=== PATIENT | female | born 1965 | race Caucasian/White ===

== ENCOUNTER → 2018-04-22 | Outpatient (CLI) | payer OTHER ==
[~2018-04-22] MED LIST: CALCIUM + D 5001 TAB PO; CLARITIN10 MG PO; COUMADIN10 M1 PO; COUMADIN5 M2 PO; COUMADIN5 MG PO; LOTREL 5 MG-101 CAP PO; MOTRIN800 MG PO; MULTIVITAMIN FO1 CAP PO; PRILOSEC20 MG PO; PRILOSEC40 MG PO
== END | disposition home or self-care (01) ==
DX: M79.89 Other specified soft tissue disorders (principal)

== ENCOUNTER → 2018-06-18 | Outpatient (CLI) | payer OTHER | END | disposition home or self-care (01) | LOC: LAB 14:18 | PROVIDERS: Urology | DX: Z01.419 Encounter for gynecological examination (general) (routine) without abnormal findings (principal); R14.0 Abdominal distension (gaseous) ==

== ENCOUNTER → 2018-07-01 | Outpatient (CLI) | payer OTHER | END | disposition home or self-care (01) | LOC: MAMMO 01:20 | DX: Z12.31 Encounter for screening mammogram for malignant neoplasm of breast (principal) ==

== ENCOUNTER → 2019-06-16 | Outpatient (CLI) | payer OTHER ==
[~2019-06-16] MED LIST changes: +BRIN10TA PO
== END ==
LOC: LAB 15:01
DX: M19.041 Primary osteoarthritis, right hand (principal)

== ENCOUNTER 2019-07-06 00:15 | Inpatient (IN) | payer OTHER ==
[~2019-07-06] VITALS: Ht 162.6 cm; Wt 73.2 kg
[2019-07-06] VITALS (72 sets, daily range): BP systolic 62–122; BP diastolic 33–85
[~2019-07-06 00:15] MED LIST changes: -BRIN10TA PO
[2019-07-06 01:03] LABS: BASO # 0.1 10*3/uL (0.0-0.1); BASO % 0.7 % (0.0-1.0); EOS # 0.4 10*3/uL (0.0-0.4); EOS % 4.8 % (1.0-4.0); HEMATOCRIT 40.1 % (37.0-47.0); HEMOGLOBIN 13.2 g/dl (12.0-16.0); LYMPH # 2.7 10*3/uL (1.3-4.4); LYMPH % 35.1 % (27.0-41.0); MEAN CELL VOLUME 93.3 fl (81.0-99.0); MEAN CORPUSCULAR HGB 30.7 pg (27.0-31.0); MEAN CORPUSCULAR HGB CONC 32.9 g/dl (33.0-37.0); MEAN PLATELET VOLUME 9.1 fl (9.6-12.3); MONO # 0.7 10*3/uL (0.1-1.0); NEUT # 3.9 10*3/uL (2.3-7.9); NEUT % 50.3 % (47.0-73.0); PLATELET COUNT AUTOMATED 350 10*3/uL (130-400); RED CELL DISTRI WIDTH 14.4 % (0-14.5); WHITE BLOOD COUNT 7.7 10*3/uL (4.8-10.8)
--- NOTE | 2019-07-06 01:15 | NUR ---
FAMILY HERE SITTING WITH PATIENT AT THIS TIME. MONITOR REMAINS SINUS RHYTHM . CASE LOZOYA RN.
[2019-07-06 01:16] LABS: BILIRUBIN NEGATIVE (NEGATIVE); CLARITY CLEAR (CLEAR); COLOR STRAW (YELLOW); GLUCOSE NEGATIVE (NEGATIVE); KETONE NEGATIVE (NEGATIVE)
[2019-07-06 01:17] LABS: BLOOD TRACE-INTACT (NEGATIVE); NITRITE NEGATIVE (NEGATIVE); PH 6.5 (5.0-9.0); UROBILINOGEN 0.2 E.U./dl (0.2-1.0)
[2019-07-06 01:19] LABS: LEUKO ESTERASE NEGATIVE (NEGATIVE)
[2019-07-06 01:19] LABS: ALBUMIN 3.6 gm/dl (3.1-4.5); ALKALINE PHOSPHATASE 57 U/L (45-117); BUN 9 mg/dl (7-24); CHLORIDE 110 mmol/L (98-107); CREATININE 0.77 mg/dL (0.55-1.02); POTASSIUM 3.6 mmol/L (3.5-5.1); SGOT/AST 16 IU/L (3-35); SGPT/ALT 21 U/L (12-78); SODIUM 142 mmol/L (136-145); TOTAL PROTEIN 7.2 gm/dL (6.4-8.2)
[2019-07-06 01:20] LABS: ACETAMINOPHEN (TYLENOL) < 5.0 ug/ml (10-30); ETHYL ALCOHOL < 3.0 mg/dl (<3); TROPONIN I < 0.015 ng/ml (<0.045)
[2019-07-06 01:25] LABS: BACTERIA TRACE; EPITHELIAL CELLS 0-2; RBC 0-2 rbc/hpf (0-2); WBC 0-2 wbc/hpf (0-5)
[2019-07-06 01:26] LABS: URINE AMPHETAMINES < 1000 (1000ng/ml); URINE BARBITURATES > 200 (200ng/ml); URINE BENZODIAZEPINES < 200 (200ng/ml); URINE CANNABINOIDS (THC) < 50 (50ng/ml); URINE COCAINE < 300 (300ng/ml); URINE METHADONE < 300 (300ng/ml); URINE OPIATES < 300 (300ng/ml); URINE PHENCYCLIDINE < 25 (25ng/ml)
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
[2019-07-06 03:27] LABS: BUN 9 mg/dl (7-24); CHLORIDE 112 mmol/L (98-107); CREATININE 0.84 mg/dL (0.55-1.02); POTASSIUM 2.7 mmol/L (3.5-5.1); SODIUM 144 mmol/L (136-145)
--- NOTE | 2019-07-06 03:30 | NUR ---
A 54 YEAR OLD FEMALE admitted to ICCU, under the services of MADELINE Champion MD with a diagnosis of DRUG OVERDOSE. Chief complaint is PT TOOK BLOOD PRESSURE PILLS AND XANAX. Patient arrived via stretcher from ER. Monitor applied. Initial assessment completed. Vital signs taken and recorded. MADELINE CHAMPION MD notified of admission to the unit. Orders received. See assessment for past medical history, medications and allergies. Patient and/or family oriented to unit. [facility]U visitation policy reviewed. Clothing/patient valuable form completed. TALA CLAY
[2019-07-06 04:02] LABS: ARTERIAL BLOOD GAS PH 7.337 (7.35-7.45)
[2019-07-06 04:04] LABS: ABG BASE EXCESS -5.1 mmol/L (-2.0-2.0)
--- NOTE | 2019-07-06 04:27 | NUR ---
ALL PATIENTS BELONGINGS SENT WITH THE FAMILY. T SHIRT SWEAT SHIT FLANNEL SLIDE ON SHOES, BAG AND PURSE AND CELL PHONE SENT HOME WITH FAMILY. CASE LOZOYA RN.
[2019-07-06 04:47] LABS: BUN 9 mg/dl (7-24); CHLORIDE 115 mmol/L (98-107); CREATININE 0.75 mg/dL (0.55-1.02); POTASSIUM 2.6 mmol/L (3.5-5.1); SODIUM 145 mmol/L (136-145)
[2019-07-06 06:20] LABS: BUN 9 mg/dl (7-24); CHLORIDE 116 mmol/L (98-107); CREATININE 0.92 mg/dL (0.55-1.02); POTASSIUM 3.1 mmol/L (3.5-5.1); SODIUM 145 mmol/L (136-145)
--- NOTE | 2019-07-06 08:00 | NUR ---
PT SLEEPING. PT AWAKENS EASILY WITH STIMULI AND IS AAOX3. LUNG WEAVER CLEAR. ABD. SOFT WITH ACTIVE BOWEL SOUNDS. WEINER PATENT FOR STRAW COLORED URINE. NO PERIPHERAL EDEMA NOTED. RIGHT ART. LINE AND LEFT IJ MLC SITES ASYMP. IV LEVOPHED CONTINUES AT 12MICS/MIN WITH MAP OF 60-71. IV D10 ALSO CONTINUES TO INFUSE VIA IV PUMP WITHOUT DIFFICULTY. UPDATED PT ON HER CONDITION AND PLAN OF CARE WHEN SHE WAS AWAKENED FOR SHIFT ASSESMENT. PT ALSO DENIED WANTING TO HARM HERSELF AT THIS TIME. WILL CONTINUE TO MONITOR PT.
[2019-07-06 08:16] LABS: BUN 8 mg/dl (7-24); CHLORIDE 113 mmol/L (98-107); CREATININE 0.83 mg/dL (0.55-1.02); SODIUM 139 mmol/L (136-145)
--- NOTE | 2019-07-06 09:33 | NUR ---
BRIANNA FROM POISON CONTROL CALLED IN FOR UPDATE - THEY WILL CONTINUE TO FOLLOW - PLEASE CALL WITH ANY QUESTIONS
[2019-07-06 10:46] LABS: BUN 6 mg/dl (7-24); CHLORIDE 112 mmol/L (98-107); CREATININE 0.82 mg/dL (0.55-1.02); POTASSIUM 4.4 mmol/L (3.5-5.1); SODIUM 140 mmol/L (136-145)
--- NOTE | 2019-07-06 11:27 | NUR ---
UPDATED DR MONTELONGO ON PT'S LABS AND CONDITION. NEW ORDERS RECEIVED.
--- NOTE | 2019-07-06 11:42 | NUR ---
MEDICATED PT PER PRN ORDER WITH TYLENOL FOR C/O ARRIAGA.
--- NOTE | 2019-07-06 11:44 | NUR ---
10 UNITS REGULAR INSULIN SQ GIVEN. IV LEVOPHED GTT DECREASED TO 11MCG/MIN FOR MAP OF 83. WILL CONTINUE TO MONITOR PT.
[2019-07-06 12:42] LABS: BUN 5 mg/dl (7-24); CHLORIDE 113 mmol/L (98-107); CREATININE 0.86 mg/dL (0.55-1.02); POTASSIUM 3.9 mmol/L (3.5-5.1); SODIUM 141 mmol/L (136-145)
[2019-07-06 14:27] LABS: BUN 4 mg/dl (7-24); CHLORIDE 108 mmol/L (98-107); CREATININE 0.66 mg/dL (0.55-1.02); POTASSIUM 3.6 mmol/L (3.5-5.1); SODIUM 139 mmol/L (136-145)
--- NOTE | 2019-07-06 14:35 | NUR ---
MEDICATED PT PER PRN ORDER WITH FIORICET FOR C/O MIGRAINE.
--- NOTE | 2019-07-06 17:00 | NUR ---
PT'S FAMILY IN TO VISIT WITH HER. IV LEVOPHED HAS BEEN TITRATED OFF. WILL CONTINUE TO MONITOR PT.
[2019-07-06 18:36] LABS: INTERNATIONAL NORM RATIO 3.4 (2.0-3.5)
[2019-07-06 18:41] LABS: BUN 3 mg/dl (7-24); CHLORIDE 110 mmol/L (98-107); CREATININE 0.65 mg/dL (0.55-1.02); POTASSIUM 3.2 mmol/L (3.5-5.1); SODIUM 142 mmol/L (136-145)
[2019-07-06 22:22] LABS: BUN 3 mg/dl (7-24); CHLORIDE 110 mmol/L (98-107); CREATININE 0.53 mg/dL (0.55-1.02); POTASSIUM 3.6 mmol/L (3.5-5.1); SODIUM 142 mmol/L (136-145)
[2019-07-07] VITALS: BP 101/60
[2019-07-07 04:00] VITALS: BP 103/63
[2019-07-07 05:22] LABS: BUN 2 mg/dl (7-24); CHLORIDE 114 mmol/L (98-107); CREATININE 0.71 mg/dL (0.55-1.02); PHOSPHOROUS 2.8 mg/dL (2.5-4.9); POTASSIUM 3.6 mmol/L (3.5-5.1); SODIUM 144 mmol/L (136-145)
[2019-07-07 06:20] LABS: BASO % 0.4 % (0.0-1.0); EOS # 0.2 10*3/uL (0.0-0.4); EOS % 2.8 % (1.0-4.0); HEMATOCRIT 36.3 % (37.0-47.0); HEMOGLOBIN 11.5 g/dl (12.0-16.0); LYMPH # 1.9 10*3/uL (1.3-4.4); MEAN CELL VOLUME 96.3 fl (81.0-99.0); MEAN CORPUSCULAR HGB 30.5 pg (27.0-31.0); MEAN CORPUSCULAR HGB CONC 31.7 g/dl (33.0-37.0); MEAN PLATELET VOLUME 9.5 fl (9.6-12.3); MONO # 0.8 10*3/uL (0.1-1.0); MONO % 10.1 % (3.0-9.0); NEUT # 4.5 10*3/uL (2.3-7.9); NEUT % 61.4 % (47.0-73.0); PLATELET COUNT AUTOMATED 306 10*3/uL (130-400); RED BLOOD COUNT 3.77 10*6/uL (4.10-5.10); RED CELL DISTRI WIDTH 14.7 % (0-14.5); WHITE BLOOD COUNT 7.4 10*3/uL (4.8-10.8)
[2019-07-07 08:00] VITALS: BP 119/71
--- NOTE | 2019-07-07 09:00 | NUR ---
Milk Driver in to talk to patient. Patient states lives at home alone with boyfriend and family checking in on her. There are 0 steps in the home. Physician: Dr. Otto Pond Pharmacy: [facility] [place] health services: none Patient's level of ADLs: INDEPENDENT Patient has working utilities: yes DME: none Follow-up physician's appointment after d/c: she prefers to make her own follow up appt after discharge Does patient want to access PORTAL?: no Discharge plan discussed with patient. Family at bedside. She lives at home alone with her boyfriend and family checking in on her. She is independent in her ADLs and ambulation. Discussed BHU and she refuses. Discharge plan undecided at this time. CAREN MURCIA
--- NOTE | 2019-07-07 10:24 | NUR ---
MEDICATED PT PER PRN ORDER WITH FIORCET FOR C/O MIGRAINE ARRIAGA.
--- NOTE | 2019-07-07 11:15 | NUR ---
PT STATES RELIEF OF ARRIAGA WITH EARLIER FIORCET.
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
[2019-07-07 12:00] VITALS: BP 139/87
--- NOTE | 2019-07-07 12:42 | NUR ---
NICOTROL INHALER GIVEN TO PT AFTER ORDER RECEIVED. PT C/O SORE THROAT ALSO. CEPECOL LOSENGERS ORDERED.
--- NOTE | 2019-07-07 12:43 | NUR ---
Received call from patients daughter Loreto. She is calling to state her fears/concerns regarding her mothers suicidal ideations. She said she has attempted this in the past and patients brother just committed suicide December of 2018. I explained that the patient is alert and oriented and would have to sign herelf into U and she is refusing to do so. Unless there is a reason to believe this patient is an immediate harm to herself or others then patient can be pink slippped by physician into the bhu. She asked if there was a SW to speak with her mother. I told her I would let NATALIA Mcclain know and ask him to reach out to this patient and I would pass her concerns onto case management/Dr. Pond. Daughter stated the reason she tried this time is because the patient and her boyfriend were discussing their relationship and patient was becoming upset. She is bipolar/depression. The boyfriend asked her to calm down and take her meds to help her calm down. Patient then stated "if you want me to take my meds then I'll take my meds!" she then took handfulls of B/P meds and ativan. Patients boyfriend left the house and called 911 on his way out. I passed info along to VANI and NATALIA.
--- NOTE | 2019-07-07 13:21 | NUR ---
Discussed BHU with Dr. Camarillo. Patient is currently pink slipped from ER. Dr. Camarillo would like to step the patient down to an IMC bed prior to BHU. U logistics planner notified.
[2019-07-07 13:30] LABS: INTERNATIONAL NORM RATIO 2.6 (2.0-3.5)
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
--- NOTE | 2019-07-07 15:32 | NUR ---
MEDICATED PT PER PRN ORDER WITH CEPECOL FOR C/O SORE THROAT.
--- NOTE | 2019-07-07 15:52 | NUR ---
PT STATES SOME RELIEF OF SORE THROAT WITH CEPECOL.
[2019-07-07 16:00] VITALS: BP 138/83
--- NOTE | 2019-07-07 19:16 | NUR ---
MEDICATED PT PER PRN ORDER WITH FIORCET FOR C/O MIGRAINE.
[2019-07-07 20:00] VITALS: BP 126/79
--- NOTE | 2019-07-07 20:14 | NUR ---
PT. RESTING IN BED. MLC INTACT, NS AND D10 CONTINUES ORDERED. HEP LOCK IN SEB ASYMPT. LUNGS CLEAR BLAT, PULSE OX 96% ON RA. ABDOMEN SOFT ,NONDISTENDED AND NORMO. NO PERIPHERAL EDEMA NOTED. WEINER DRAINING A CLEAR YELLOW URINE RESP. EASY AND REG ,NO DISTRESS. RONNIE TA RN
[2019-07-08] VITALS: BP 115/66
[2019-07-08 04:00] VITALS: BP 114/65
[2019-07-08 05:09] LABS: BUN 6 mg/dl (7-24); CHLORIDE 110 mmol/L (98-107); CREATININE 0.59 mg/dL (0.55-1.02); POTASSIUM 3.7 mmol/L (3.5-5.1); SODIUM 140 mmol/L (136-145)
[2019-07-08 05:54] LABS: BASO # 0.1 10*3/uL (0.0-0.1); BASO % 0.7 % (0.0-1.0); EOS # 0.3 10*3/uL (0.0-0.4); EOS % 4.2 % (1.0-4.0); HEMOGLOBIN 11.4 g/dl (12.0-16.0); LYMPH # 2.2 10*3/uL (1.3-4.4); LYMPH % 30.9 % (27.0-41.0); MEAN CELL VOLUME 95.5 fl (81.0-99.0); MEAN CORPUSCULAR HGB 30.2 pg (27.0-31.0); MEAN CORPUSCULAR HGB CONC 31.7 g/dl (33.0-37.0); MEAN PLATELET VOLUME 9.5 fl (9.6-12.3); MONO # 0.6 10*3/uL (0.1-1.0); MONO % 8.4 % (3.0-9.0); NEUT % 55.5 % (47.0-73.0); PLATELET COUNT AUTOMATED 313 10*3/uL (130-400); RED BLOOD COUNT 3.77 10*6/uL (4.10-5.10); RED CELL DISTRI WIDTH 14.1 % (0-14.5); WHITE BLOOD COUNT 7.2 10*3/uL (4.8-10.8)
[2019-07-08 06:15] LABS: INTERNATIONAL NORM RATIO 1.7 (2.0-3.5)
[2019-07-08 08:00] VITALS: BP 118/69
--- NOTE | 2019-07-08 08:33 | NUR ---
PATIENT C/O HEADACHE AND PAIN IN HER NECK. REQUESTING MEDICINE FOR MIGRAINE. MEDICATED WITH FIORICET PER PRN ORDER. PATIENT STATES SHE NO LONGER HAS THOUGHTS OF HURTING HERSELF. "I JUST WANT TO GO WHERE THEY WANT ME TO GO AND GO HOME".
--- NOTE | 2019-07-08 09:47 | NUR ---
Spoke to Mervat at [facility] regarding inpatient mental health authorization. IP 3 days florentin, 07/07-07/09, NRD 07/09. Ref # [id number]. Concurrent reviewer will be Tana [phone]. Notified [facility] marketing planner and Dr. Camarillo.
--- NOTE | 2019-07-08 10:22 | NUR ---
POISON CONTROL CALLED IN. UPDATED ON PATIENT CONDITION,VITALS AND LABS. RECOMMEND TO DISCONTINUE IVF AND CHECK BEDSIDE GLUCOSE TO SEE IF PATIENT CAN MAINTAIN GLUCOSE LEVELS. AT BEDSIDE. NOTIFIED OF RECCOMENDATIONS. ORDERS RECEIVED TO DISCONTINUE ALL IVF AND REMOVE WEINER CATHETER.
[2019-07-08 12:00] VITALS: BP 144/90
--- NOTE | 2019-07-08 12:55 | NUR ---
BEDSIDE GLUCOSE CHECKED RESULT OF 93.
[2019-07-08] MEDS ORDERED: BRIN10TA PO (13:22)
--- NOTE | 2019-07-08 15:15 | NUR ---
PATIENT DISCHARGED TO U. ALL PERSONAL BELONGINGS SENT WITH PATIENT. DISCHARGE PACKET GIVEN TO U STAFF. LIJ MLC REMOVED. RIGHT RADIAL ART LINE REMOVED PRESSURE HELD FOR 10 MINUTES. BINGO CLERK DISCONTINUED.
== END 2019-07-08 15:15 | disposition home health service (06) | DRG 817 ==
LOC: ED 00:36 → EDHOLD 01:53 → ICCU 01:53
PROVIDERS: Emergency Medicine; Internal Medicine; Student in an Organized Health Care Education/Training Program; ADMIT Internal Medicine
PROC: 02HV33Z Insertion of Infusion Device into Superior Vena Cava, Percutaneous Approach (ICD-10-PCS; principal; 2019-07-06)
PROC: B548ZZA Ultrasonography of Superior Vena Cava, Guidance (ICD-10-PCS; 2019-07-06)
PROC: 03HY32Z Insertion of Monitoring Device into Upper Artery, Percutaneous Approach (ICD-10-PCS; 2019-07-06)
DX: T42.4X2A Poisoning by benzodiazepines, intentional self-harm, initial encounter (principal); F13.10 Sedative, hypnotic or anxiolytic abuse, uncomplicated; E87.2 Acidosis; E87.6 Hypokalemia; F17.210 Nicotine dependence, cigarettes, uncomplicated; T46.4X2A Poisoning by angiotensin-converting-enzyme inhibitors, intentional self-harm, initial encounter; R00.0 Tachycardia, unspecified; T46.1X2A Poisoning by calcium-channel blockers, intentional self-harm, initial encounter; F33.2 Major depressive disorder, recurrent severe without psychotic features; F41.9 Anxiety disorder, unspecified; F60.3 Borderline personality disorder; R51 Headache; R45.851 Suicidal ideations; I95.9 Hypotension, unspecified; I10 Essential (primary) hypertension; K21.9 Gastro-esophageal reflux disease without esophagitis; R73.9 Hyperglycemia, unspecified; I95.2 Hypotension due to drugs; T50.995A Adverse effect of other drugs, medicaments and biological substances, initial encounter; Y92.89 Other specified places as the place of occurrence of the external cause; Z88.5 Allergy status to narcotic agent; Z98.891 History of uterine scar from previous surgery; Z98.51 Tubal ligation status; Z80.8 Family history of malignant neoplasm of other organs or systems; Z79.899 Other long term (current) drug therapy; Z81.8 Family history of other mental and behavioral disorders; Z91.5 Personal history of self-harm

== ENCOUNTER 2019-07-08 14:23 | Inpatient (IN) | payer OTHER ==
[~2019-07-08] VITALS: Ht 162.5 cm; Wt 68.9 kg
[~2019-07-08 14:23] MED LIST changes: +BRIN10TA PO
--- NOTE | 2019-07-08 15:20 | NUR ---
DASHA AGARWAL a 54 year old F admitted via wheel chair from the ADMITTING as a voluntary admission. Arrived on unit at 1742. ALLERGIES: MORPHINE, CODEINE AND PERFUMES . Vital signs are: 97.6-94-20 117/76. The client signed the following forms with stated understanding: Authorization For The Release of Medical Information, Clothing List, Consent to Voluntary Admission and Hospitalization, Consent and Release Forms/Receipt of Rights, Acknowledgement of Advance Directive Information, Behavioral Health Consent Form, and Informed Consent of Medications. Admitted under the services of Dr. SEA MARTINEZ,[facility]. A search was conducted and hazardous articles were removed. Client was oriented to the unit. TONYA AVILA
[2019-07-08 16:04] VITALS: BP 117/76
--- NOTE | 2019-07-08 17:22 | NUR ---
CALL PLACED TO RESIDENT PHONE FOR , SPOKE TO - RESIDENT ON 'S SERVICE. MADE AWARE OF CONSULT FOR MEDICAL MANAGEMENT. STATES HE WILL RECONCILE MEDICAL MEDICATIONS AND SEE PT TOMORROW.
[2019-07-08 19:33] VITALS: BP 123/87
--- NOTE | 2019-07-08 21:20 | NUR ---
Patient alert and oriented x4. Mood calm and cooperative but sad. Patient denies any SI/HI and hallucinations/delusions at this time. No s/s of any responding to internal stimuli noted. Patient compliant with HS medications without any difficulty. Patient isolative to self in her room. Patient showered this evening. Ambulating unassisted in hallway with steady gait. Offered 1:1 for emotional support but patient refused at this time. Plan to continue to encourage medication compliance. Also continue to offer emotional support and encourage interaction with staff and other patients. Will continue to monitor moods/behaviors. Q 15 minute safety checks continued and maintained. See [facility] flowsheet for further documentation.
--- NOTE | 2019-07-08 21:21 | NUR ---
Medicated with Tylenol po prn for c/o headache. Will monitor effectiveness.
--- NOTE | 2019-07-09 00:10 | NUR ---
24 HR chart check completed.
--- NOTE | 2019-07-09 05:07 | NUR ---
Patient slept approx. 8 hours throughout shift. Q 15 minute safety checks continued and maintained.
--- NOTE | 2019-07-09 06:18 | NUR ---
Medicated with Tylenol po prn for c/o headache. Will monitor effectiveness.
[2019-07-09 06:22] LABS: BASO % 0.6 % (0.0-1.0); EOS # 0.4 10*3/uL (0.0-0.4); EOS % 5.4 % (1.0-4.0); HEMATOCRIT 34.2 % (37.0-47.0); HEMOGLOBIN 11.1 g/dl (12.0-16.0); LYMPH # 2.5 10*3/uL (1.3-4.4); LYMPH % 34.7 % (27.0-41.0); MEAN CELL VOLUME 94.2 fl (81.0-99.0); MEAN CORPUSCULAR HGB 30.6 pg (27.0-31.0); MEAN CORPUSCULAR HGB CONC 32.5 g/dl (33.0-37.0); MEAN PLATELET VOLUME 9.2 fl (9.6-12.3); MONO # 0.6 10*3/uL (0.1-1.0); MONO % 7.8 % (3.0-9.0); NEUT # 3.6 10*3/uL (2.3-7.9); NEUT % 51.2 % (47.0-73.0); PLATELET COUNT AUTOMATED 307 10*3/uL (130-400); RED BLOOD COUNT 3.63 10*6/uL (4.10-5.10); RED CELL DISTRI WIDTH 13.9 % (0-14.5); WHITE BLOOD COUNT 7.1 10*3/uL (4.8-10.8)
[2019-07-09 06:38] LABS: ALBUMIN 2.9 gm/dl (3.1-4.5); ALKALINE PHOSPHATASE 68 U/L (45-117); BUN 9 mg/dl (7-24); CHLORIDE 110 mmol/L (98-107); CHOLESTEROL 180 mg/dL (<200); CREATININE 0.71 mg/dL (0.55-1.02); HDL CHOLESTEROL 50 mg/dl (40-60); LDL CHOLESTEROL 99 mg/dL (9-159); POTASSIUM 3.6 mmol/L (3.5-5.1); SGOT/AST 15 IU/L (3-35); SGPT/ALT 24 U/L (12-78); SODIUM 143 mmol/L (136-145); TOTAL PROTEIN 6.3 gm/dL (6.4-8.2); TRIGLYCERIDES 154 mg/dl (<150); VLDL CHOLESTEROL 31 mg/dL (6-40)
[2019-07-09 07:45] VITALS: BP 120/67
[2019-07-09 07:58] LABS: VITAMIN D, 25-HYDROXY 25.9 ng/mL (30-100)
--- NOTE | 2019-07-09 11:49 | NUR ---
ASSESSMENT AND 1:1 COMPLETED PT ASSESSMENT AND HAD A LENGTHY 1:1 WITH PT. PT IS ENTHUSIASTIC ABOUT HER RECOVERY AND HAS A HOPEFUL OUTLOOK ON HER FUTURE. PT WAS COOPERATIVE AND OPEN IN DISCUSSION BUT IS LOOKING FORWARD TO BEING DISCHARGED FROM THE UNIT TOMORROW.
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
--- NOTE | 2019-07-09 15:37 | NUR ---
Spoke to Mervat on 07/07 at [facility] regarding inpatient mental health authorization. IP 3 days florentin, 07/07-07/09, NRD 07/09. Ref # [id number]. Concurrent reviewer will be Tana [phone].
--- NOTE | 2019-07-09 15:45 | NUR ---
PM GROUP PT ATTENDED AFTERNOON GROUP THERAPY AND PARTICIPATED IN THE ENNEAGRAM. PT WAS TALKATIVE AND INTERESTED IN COPING SKILLS AND STRATEGIES. PT EXPRESSED HOPE FOR HER FUTURE. PT EXPRESSED NO SUICIDAL IDEATIONS WHILE IN GROUP
--- NOTE | 2019-07-09 16:15 | NUR ---
TREATMENT PLAN MEETING WAS HELD WITH DR. OSEI, RN, AT, DRILL DOCTOR-S AND PODIATRIC SURGEON. PLAN FOR DISCHARGE TOMMOROW. PT. WILL RETURN HOME.
[2019-07-09 20:00] VITALS: BP 112/69
--- NOTE | 2019-07-09 21:14 | NUR ---
Patient alert and oriented x4. Mood calm and cooperative but sad. Patient denies any SI/HI and hallucinations/delusions at this time. No s/s of any responding to internal stimuli noted. Patient compliant with HS medications without any difficulty. Patient interactive with staff and other patients while in dining room during snacks. Ambulating unassisted in hallway with steady gait. Offered 1:1 for emotional support but patient refused at this time. Plan to continue to encourage medication compliance. Also continue to offer emotional support and encourage interaction with staff and other patients. Will continue to monitor moods/behaviors. Q 15 minute safety checks continued and maintained. See [facility] flowsheet for further documentation.
--- NOTE | 2019-07-10 00:23 | NUR ---
24 HR chart check completed.
--- NOTE | 2019-07-10 05:43 | NUR ---
Patient slept approx. 5.5 hours throughout shift. Q 15 minute safety checks continued and maintained.
[2019-07-10 07:46] VITALS: BP 112/70
--- NOTE | 2019-07-10 09:00 | NUR ---
TREATMENT PLAN MEETING WAS HELD WITH GAVIOTA WALDRON, RN, AT, FINANCE CONTROLLER-S AND FINISH CARPENTER. PLAN FOR DISCHARGE TODAY WITH RETURN HOME. PT. WILL FOLLOW WITH [facility] FOR COUNSELING AND MEDICATIONS. FOLLOW UP WITH PCP NEXT WEEK. REFERRAL TO [facility].
[2019-07-10 09:31] LABS: INTERNATIONAL NORM RATIO 2.1 (2.0-3.5)
[2019-07-10] MEDS ORDERED: BRIN20TA PO (09:32)
--- NOTE | 2019-07-10 11:22 | NUR ---
Met with pt this AM. Pt states that she feels good and ready for discharge. Pt denies suicidal ideations and did confirm that she is going to stay with her father and stepmother for a few days. Discussed follow-ups. Pt is interested in the [facility] but is unsure of upcoming appointments. It was decided that a referral would be made to the IOP with a request that they contact pt Saturday to finalize a schedule.
--- NOTE | 2019-07-10 11:56 | NUR ---
AM GROUP PT ATTENDED MORNING GROUP THERAPY AND PARTICIPATED WITH THIS MATERIAL HANDLER FLOORPERSON IN DISCUSSING COPING STRATEGIES WHEN AT HOME. PT WAS RECEPTIVE AND HOPEFUL. PT IS SET TO BE DISCHARGED FROM THE UNIT THIS AFTERNOON.
--- NOTE | 2019-07-10 12:46 | NUR ---
SPOKE WITH ROSSY AT [facility] [phone]. FAXED REFERRAL AND ROSSY WILL FOLLOW WITH PATIENT NEXT WEEK.
--- NOTE | 2019-07-10 12:53 | NUR ---
REVIEWED DISCHARGE MEDS VIA TELEPHONE WITH . STATES TO CONTINUE ALL MEDS. WITNESSED BY 2ND RN SHANTE ARAGON PHONES UNIT REGARDING MEDS. REVIEWED LIST. STATES TO INSTRUCT PT TO TAKE FOLIC ACID AND VITAMIN D OVER THE COUNTER. AGAIN REVIEWED HOME MED LIST AND STATES MED LIST IS GOOD FOR DISCHARGE. WITNESSED BY 2ND RN SHANTE
[2019-07-10] MEDS ORDERED: NORVASC5 MG PO (13:05)
--- NOTE | 2019-07-10 13:33 | NUR ---
Left voicemail with Tana at [facility] regarding discharge clinical
--- NOTE | 2019-07-10 13:48 | NUR ---
Patient discharged today to stay short-term at her father and stepmother's home. Follow-up will be with [facility] for psychiatry and counseling. A referral was also made to [facility], with plan for Qasim of this program to contact pt on 07/13/19 to finalize pt's participation schedule. Pt denies suicidal ideations. She is future-oriented as she is making plans for counseling and focusing on self-improvement. This card writer hand met with pt's father Arturo and mother Judie yesterday. They both voiced that pt will have much support from family when pt returns home.
== END 2019-07-10 13:15 | disposition home or self-care (01) | DRG 817 ==
LOC: 3N 14:23
PROVIDERS: Hospitalist; ADMIT Psychiatry & Neurology Psychiatry
DX: T50.992A Poisoning by other drugs, medicaments and biological substances, intentional self-harm, initial encounter (principal); F33.2 Major depressive disorder, recurrent severe without psychotic features; R45.851 Suicidal ideations; F60.3 Borderline personality disorder; K21.9 Gastro-esophageal reflux disease without esophagitis; I10 Essential (primary) hypertension; Z88.5 Allergy status to narcotic agent; Z79.899 Other long term (current) drug therapy

== ENCOUNTER → 2020-02-09 | Outpatient (CLI) | payer OTHER ==
[~2020-02-09] MED LIST changes: +BRIN20TA PO; +NORVASC5 MG PO
== END | disposition home or self-care (01) ==
LOC: MAMMO 00:27
PROVIDERS: ATTEND Internal Medicine Nephrology
DX: Z12.31 Encounter for screening mammogram for malignant neoplasm of breast (principal)

== ENCOUNTER → 2021-04-04 | Outpatient (CLI) | payer OTHER | END | disposition home or self-care (01) | LOC: MAMMO 14:32 | PROVIDERS: ATTEND Internal Medicine Nephrology | DX: Z12.31 Encounter for screening mammogram for malignant neoplasm of breast (principal) ==

== ENCOUNTER → 2021-04-05 | Outpatient (CLI) | payer OTHER ==
[2021-04-05 10:03] LABS: BASO # 0.1 10*3/uL (0.0-0.1); BASO % 0.9 % (0.0-1.0); EOS # 0.4 10*3/uL (0.0-0.4); HEMATOCRIT 41.1 % (37.0-47.0); LYMPH # 2.3 10*3/uL (1.3-4.4); LYMPH % 29.8 % (27.0-41.0); MEAN CELL VOLUME 93.4 fl (81.0-99.0); MEAN CORPUSCULAR HGB 29.8 pg (27.0-31.0); MEAN CORPUSCULAR HGB CONC 31.9 g/dl (33.0-37.0); MEAN PLATELET VOLUME 9.4 fl (9.6-12.3); MONO # 0.8 10*3/uL (0.1-1.0); MONO % 9.9 % (3.0-9.0); NEUT # 4.2 10*3/uL (2.3-7.9); NEUT % 54.1 % (47.0-73.0); PLATELET COUNT AUTOMATED 420 10*3/uL (130-400); RED CELL DISTRI WIDTH 14.9 % (0-14.5); WHITE BLOOD COUNT 7.8 10*3/uL (4.8-10.8)
[2021-04-05 10:33] LABS: ALBUMIN 3.5 gm/dl (3.1-4.5); ALKALINE PHOSPHATASE 82 U/L (45-117); BUN 11 mg/dl (7-24); CHLORIDE 110 mmol/L (98-107); CHOLESTEROL 248 mg/dL (<200); LDL CHOLESTEROL 144 mg/dL (9-159); POTASSIUM 4.6 mmol/L (3.5-5.1); SGOT/AST 41 IU/L (3-35); SGPT/ALT 48 U/L (12-78); SODIUM 140 mmol/L (136-145); TOTAL PROTEIN 7.8 gm/dL (6.4-8.2); TRIGLYCERIDES 241 mg/dl (<150)
== END | disposition home or self-care (01) ==
LOC: LAB 00:37
PROVIDERS: ATTEND Internal Medicine Nephrology
DX: R53.83 Other fatigue (principal); E78.5 Hyperlipidemia, unspecified; I10 Essential (primary) hypertension; F41.9 Anxiety disorder, unspecified

== ENCOUNTER → 2022-08-14 | Outpatient (CLI) | payer OTHER ==
[2022-08-14 18:00] LABS: URINE CREATININE RANDOM 63.22 mg/dL
[2022-08-14 18:19] LABS: ALKALINE PHOSPHATASE 83 U/L (46-116); BUN 10 mg/dl (9-23); CHLORIDE 102 mmol/L (98-107); SGPT/ALT 23 U/L (10-49); TOTAL PROTEIN 7.6 gm/dL (6.0-8.0)
== END | disposition home or self-care (01) ==
LOC: LAB 15:35 → MAMMO 15:35
PROVIDERS: ATTEND Internal Medicine Nephrology
DX: Z12.31 Encounter for screening mammogram for malignant neoplasm of breast (principal); N63.20 Unspecified lump in the left breast, unspecified quadrant; E83.52 Hypercalcemia; I10 Essential (primary) hypertension; Z11.59 Encounter for screening for other viral diseases; N64.9 Disorder of breast, unspecified

== ENCOUNTER → 2023-08-21 | Outpatient (CLI) | payer OTHER | END | disposition home or self-care (01) | LOC: US 01:12 | PROVIDERS: ATTEND Internal Medicine Nephrology | DX: N28.1 Cyst of kidney, acquired (principal); K80.20 Calculus of gallbladder without cholecystitis without obstruction; K76.0 Fatty (change of) liver, not elsewhere classified ==

== ENCOUNTER 2023-10-04 18:28 | Emergency (ER) | payer OTHER ==
[~2023-10-04] VITALS: Ht 162.5 cm; Wt 77.1 kg
[2023-10-04 18:39] VITALS: BP 118/82
[2023-10-04] MEDS ORDERED: Pantoprazole Sodium 40 MG VIAL IV ONE (18:55)
[2023-10-04] MEDS ORDERED: Ondansetron Hydrochloride 4 MG/2 ML VIAL IV ONE (18:55)
[2023-10-04] MEDS ORDERED: SODIUM CHLORIDE 0.9% 1,000 ML IV ONE (18:55)
[2023-10-04 19:06] LABS: BASO # 0.1 10*3/uL (0.0-0.1); BASO % 0.6 % (0.0-1.0); EOS # 0.1 10*3/uL (0.0-0.4); EOS % 0.9 % (1.0-4.0); HEMATOCRIT 48.5 % (37.0-47.0); LYMPH # 2.5 10*3/uL (1.3-4.4); MEAN CELL VOLUME 88.2 fl (81.0-99.0); MEAN CORPUSCULAR HGB 29.3 pg (27.0-31.0); MEAN CORPUSCULAR HGB CONC 33.2 g/dl (33.0-37.0); MEAN PLATELET VOLUME 10.7 fl (9.6-12.3); MONO # 0.6 10*3/uL (0.1-1.0); MONO % 5.1 % (3.0-9.0); NEUT # 7.6 10*3/uL (2.3-7.9); NEUT % 70.1 % (47.0-73.0); PLATELET COUNT AUTOMATED 390 10*3/uL (130-400); RED CELL DISTRI WIDTH 15.8 % (0-14.5); WHITE BLOOD COUNT 10.9 10*3/uL (4.8-10.8)
[2023-10-04 19:30] LABS: ALKALINE PHOSPHATASE 83 U/L (46-116); BUN 6 mg/dl (9-23); CHLORIDE 101 mmol/L (98-107); LIPASE 38 U/L (12-53); POTASSIUM 4.1 mmol/L (3.4-5.1); SGPT/ALT 8 U/L (5-49); TOTAL PROTEIN 8.1 gm/dL (6.0-8.0)
[2023-10-04] MEDS ORDERED: ONDANSETRON4 MG SL (21:03)
== END 2023-10-04 21:11 | disposition home or self-care (01) ==
LOC: ED 18:28
PROVIDERS: Internal Medicine
DX: K52.9 Noninfective gastroenteritis and colitis, unspecified (principal); K80.20 Calculus of gallbladder without cholecystitis without obstruction; D75.1 Secondary polycythemia; R11.2 Nausea with vomiting, unspecified; I10 Essential (primary) hypertension; F41.9 Anxiety disorder, unspecified; F32.A Depression, unspecified; F17.210 Nicotine dependence, cigarettes, uncomplicated; Z88.5 Allergy status to narcotic agent; Z88.8 Allergy status to other drugs, medicaments and biological substances; Z98.51 Tubal ligation status; Z98.890 Other specified postprocedural states

== ENCOUNTER → 2023-10-10 | Outpatient (CLI) | payer OTHER ==
[~2023-10-10] MED LIST changes: +ONDANSETRON4 MG SL
[2023-10-10 16:49] LABS: TOTAL PROTEIN 7.2 gm/dL (6.0-8.0)
== END | disposition home or self-care (01) ==
LOC: LAB 13:45
PROVIDERS: ATTEND Internal Medicine Gastroenterology
DX: K76.0 Fatty (change of) liver, not elsewhere classified (principal)

== ENCOUNTER → 2024-07-28 | Outpatient (CLI) | payer OTHER | END | disposition home or self-care (01) | LOC: MAMMO 14:16 | PROVIDERS: ATTEND Internal Medicine Nephrology | DX: Z12.31 Encounter for screening mammogram for malignant neoplasm of breast (principal); R92.323 Mammographic fibroglandular density, bilateral breasts; N64.89 Other specified disorders of breast ==